=== PATIENT | male | born 1935 | race Caucasian/White ===

== ENCOUNTER → 2017-08-17 | Outpatient (CLI) | payer OTHER | END | disposition home or self-care (01) | LOC: PCVCCLINIC 11:44 | DX: I11.0 Hypertensive heart disease with heart failure (principal); I50.31 Acute diastolic (congestive) heart failure; R06.02 Shortness of breath; I48.4 Atypical atrial flutter; E78.5 Hyperlipidemia, unspecified; I44.7 Left bundle-branch block, unspecified; Z79.899 Other long term (current) drug therapy | CPT/HCPCS: 80061; 93005; G0463 ==

== ENCOUNTER → 2017-09-01 | Outpatient (CLI) | payer OTHER | END | disposition home or self-care (01) | LOC: PCVCIMAG 14:57 | DX: Z01.818 Encounter for other preprocedural examination (principal); R06.00 Dyspnea, unspecified; I48.91 Unspecified atrial fibrillation; I50.9 Heart failure, unspecified; I44.7 Left bundle-branch block, unspecified | CPT/HCPCS: 93325; 93351 ==

== ENCOUNTER → 2017-09-07 | Outpatient (CLI) | payer OTHER ==
[~2017-09-07] MED LIST: REGADENOSON 0.4 MG/5 ML DISP.SYRIN. IV
== END | disposition home or self-care (01) ==
LOC: PCVCIMAG 08:15
DX: Z01.818 Encounter for other preprocedural examination (principal); I48.1 Persistent atrial fibrillation; I48.92 Unspecified atrial flutter; I11.0 Hypertensive heart disease with heart failure; I50.9 Heart failure, unspecified; I44.7 Left bundle-branch block, unspecified; R06.02 Shortness of breath; E78.5 Hyperlipidemia, unspecified; Z79.82 Long term (current) use of aspirin; Z79.899 Other long term (current) drug therapy
CPT/HCPCS: 36415; 78452; 93005; 93017; A9500; G0463; J2785

== ENCOUNTER → 2017-09-08 | Outpatient (CLI) | payer OTHER | END | disposition home or self-care (01) | LOC: PCVCCLINIC 12:50 | DX: I48.1 Persistent atrial fibrillation (principal); I10 Essential (primary) hypertension; E78.5 Hyperlipidemia, unspecified; I44.7 Left bundle-branch block, unspecified; R06.02 Shortness of breath; R94.39 Abnormal result of other cardiovascular function study; Z79.899 Other long term (current) drug therapy | CPT/HCPCS: 36415; 93005; G0463 ==

== ENCOUNTER → 2017-11-09 | Outpatient (CLI) | payer OTHER | LOC: PCVCCLINIC 13:32 | DX: I25.10 Atherosclerotic heart disease of native coronary artery without angina pectoris (principal); I11.0 Hypertensive heart disease with heart failure; I50.32 Chronic diastolic (congestive) heart failure; I48.0 Paroxysmal atrial fibrillation; I44.7 Left bundle-branch block, unspecified; Z95.1 Presence of aortocoronary bypass graft; Z88.8 Allergy status to other drugs, medicaments and biological substances; Z79.82 Long term (current) use of aspirin; Z79.899 Other long term (current) drug therapy | CPT/HCPCS: 93005; G0463 ==

== ENCOUNTER → 2017-11-29 | Outpatient (CLI) | payer OTHER | END | disposition home or self-care (01) | LOC: PCVCCLINIC 12:11 | DX: I25.10 Atherosclerotic heart disease of native coronary artery without angina pectoris (principal); I11.0 Hypertensive heart disease with heart failure; I50.32 Chronic diastolic (congestive) heart failure; I48.1 Persistent atrial fibrillation; I44.7 Left bundle-branch block, unspecified; Z95.1 Presence of aortocoronary bypass graft; Z79.899 Other long term (current) drug therapy; Z79.82 Long term (current) use of aspirin; Z88.1 Allergy status to other antibiotic agents | CPT/HCPCS: 93005; G0463 ==

== ENCOUNTER → 2018-03-05 | Outpatient (CLI) | payer OTHER | END | disposition home or self-care (01) | LOC: PCVCCLINIC 12:50 | PROVIDERS: ATTEND Internal Medicine | DX: I25.10 Atherosclerotic heart disease of native coronary artery without angina pectoris (principal); I11.0 Hypertensive heart disease with heart failure; I50.32 Chronic diastolic (congestive) heart failure; I48.0 Paroxysmal atrial fibrillation; I44.7 Left bundle-branch block, unspecified; E78.5 Hyperlipidemia, unspecified; Z95.1 Presence of aortocoronary bypass graft; Z79.82 Long term (current) use of aspirin | CPT/HCPCS: 80061; 93005; G0463 ==

== ENCOUNTER → 2018-09-03 | Outpatient (CLI) | payer OTHER ==
--- NOTE | 2018-09-03 09:12 | PCVCIMAG ---
APPROVED REPORT Indications Bruit Risk Factors Hypertension: Doppler Spectral Velocity Analysis PSV / EDVPSV / EDV ECA (R) 137 / 0 cm/sECA (L) 154 / 0 cm/s dICA (R) 56 / 14 cm/sdICA (L) 63 / 15 cm/s Abdoulaye (R) 101 / 27 cm/smICA (L) 61 / 13 cm/s pICA (R) 121 / 34 cm/spICA (L) 77 / 17 cm/s Bulb (R) 80 / 10 cm/sBulb (L) 101 / 17 cm/s dCCA (R) 80 / 10 cm/sdCCA (L) 96 / 12 cm/s mCCA (R) 110 / 18 cm/smCCA (L) 117 / 16 cm/s Vert (R) 82 / 16 cm/sVert (L) 49 / 8 cm/s ICA/CCA 1.51ICA/CCA 0.80 Basic Measurements Blood Pressure: Pulses: Right Left RightLeft Brachial(Sitting) 134/[id number]/78mmHgTemporal Real Time B-Mode Imaging Vert. (R)AntegradeVert. (L)Antegrade Findings The right carotid bulb has moderate calcified plaque. The right proximal internal carotid artery shows 40-50% stenosis. The right common carotid artery shows no significant stenosis. The right external carotid artery shows >50% stenosis. The left carotid bulb has mild plaque. The left proximal internal carotid artery shows <40% stenosis. The left common carotid artery shows <40% stenosis. The left external carotid artery shows >50% stenosis. Conclusion 1. 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 Left common and internal carotid artery stenoses (<40%) 3. Antegrade vertebral flow
--- NOTE | 2018-09-03 09:57 | PCVCIMAG ---
APPROVED REPORT Study performed: 09/03/2018 09:05:07 EXAM: Comprehensive 2D, Doppler, and color-flow Echocardiogram Patient Location: Echo lab Status: routine BSA: 2.17 HR: 45 bpmBP: 134/70 mmHg Rhythm: LBBB, bradycardia Other Information Study Quality: Adequate Technically limited study due to inability to position patient. Indications Congestive Heart Failure CAD LBBB, parox a fib 2D Dimensions IVSd: 13.16 (7-11mm) LVDd: 49.86 mm PWd: 11.77 (7-11mm)Ascending Ao: 45.76 (22-36mm) LVDs: 41.89 (25-40mm) Left Atrium: 41.70 (27-40mm) Aortic Root: 38.18 mm LV Single Plane 4CH: 49.70 % LV Single Plane 2CH: 45.54 % Volumes Left Atrial Volume (Systole) Single Plane 4CH: 93.67 mLSingle Plane 2CH: 83.08 mL LA ESV Index: 45.00 mL/m2 Aortic Valve AoV Peak Panda.: 1.39 m/s AO Peak Gr.: 7.70 mmHgLVOT Max P.03 mmHg LVOT Max V: 0.87 m/s Mitral Valve IVRT: 110.73 ms Pulmonary Valve PV Peak Panda.: 0.88 m/sPV Peak Gr.: 3.09 mmHg Pulmonary Vein P Vein S: 0.32 m/s P Vein D: 0.44 m/s P Vein S/D Ratio: 0.73 Tricuspid Valve TR Peak Panda.: 2.46 m/s TR Peak Gr.: 24.17 mmHg Left Ventricle The left ventricle is normal size. There is normal LV segmental wall motion. Mild concentric left ventricular hypertrophy. Left ventricular systolic function is at the lower limits of normal. LVEF is 50-55%. Mild diastolic dysfunction is present (impaired relaxation pattern). Right Ventricle The right ventricle is normal size. The right ventricular systolic function is normal. Atria Left atrium is moderately dilated. Right atrium is moderately dilated. Aortic Valve The aortic valve is mildly calcified, trileaflet Mild aortic regurgitation. There is no aortic valvular stenosis. Mitral Valve The mitral valve is normal in structure. Moderate mitral regurgitation. No evidence of mitral valve stenosis. Tricuspid Valve The tricuspid valve is normal in structure. Moderate tricuspid regurgitation with PAP of 34 mmHg. Pulmonic Valve The pulmonary valve is normal in structure. There is mild pulmonic valvular regurgitation. Great Vessels The aortic root is upper limits of normal in size. 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 IVC is dilated and collapses >50% with inspiration. Pericardium There is no pericardial effusion. There is no pleural effusion. <Conclusion> Left ventricular systolic function is at the lower limits of normal. There is normal LV segmental wall motion. LVEF 50-55%. Both atria are moderately dilated. The aortic valve is mildly calcified, trileaflet. Mild aortic regurgitation, no stenosis. The mitral valve is normal in structure. Moderate mitral regurgitation. Moderate tricuspid regurgitation with pulmonary artery pressure of 34 mmHg. 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 There is no pericardial effusion.
== END | disposition home or self-care (01) ==
LOC: PCVCIMAG 08:27
PROVIDERS: ATTEND Internal Medicine
DX: I65.23 Occlusion and stenosis of bilateral carotid arteries (principal); I08.2 Rheumatic disorders of both aortic and tricuspid valves; I11.0 Hypertensive heart disease with heart failure; I50.32 Chronic diastolic (congestive) heart failure; I48.0 Paroxysmal atrial fibrillation; I44.7 Left bundle-branch block, unspecified; E78.5 Hyperlipidemia, unspecified; I25.10 Atherosclerotic heart disease of native coronary artery without angina pectoris; M19.90 Unspecified osteoarthritis, unspecified site; Z95.1 Presence of aortocoronary bypass graft; Z88.8 Allergy status to other drugs, medicaments and biological substances; Z79.899 Other long term (current) drug therapy
CPT/HCPCS: 93306; 93880

== ENCOUNTER → 2019-03-05 | Outpatient (CLI) | payer OTHER | END | disposition home or self-care (01) | LOC: PCVCCLINIC 10:58 | PROVIDERS: ATTEND Internal Medicine | DX: I11.0 Hypertensive heart disease with heart failure (principal); I50.32 Chronic diastolic (congestive) heart failure; I25.10 Atherosclerotic heart disease of native coronary artery without angina pectoris; I48.21 Permanent atrial fibrillation; I44.7 Left bundle-branch block, unspecified; E78.5 Hyperlipidemia, unspecified; Z95.1 Presence of aortocoronary bypass graft; M19.90 Unspecified osteoarthritis, unspecified site; Z90.49 Acquired absence of other specified parts of digestive tract; Z96.641 Presence of right artificial hip joint; Z82.49 Family history of ischemic heart disease and other diseases of the circulatory system; Z72.89 Other problems related to lifestyle; Z88.6 Allergy status to analgesic agent; Z88.8 Allergy status to other drugs, medicaments and biological substances; Z79.899 Other long term (current) drug therapy | CPT/HCPCS: 36415; 80061; 93005; G0463 ==